=== PATIENT | female | born 1995 | race Caucasian/White ===

== ENCOUNTER 2023-05-29 22:38 | Emergency (ER) | payer MEDICAID, OTHER ==
[~2023-05-29] VITALS: Ht 160 cm; Wt 81.8 kg
[2023-05-29 22:45] VITALS: TEMP 98.2
[2023-05-29] MEDS ORDERED: IBUP-1492 PO (23:57)
[2023-05-30] MEDS ORDERED: IBUPROFEN 600 MG TABLET PO ONE
[2023-05-30 01:00] VITALS: BP 132/69; PULSE 71; RESP 16
== END 2023-05-30 01:02 | disposition home or self-care (01) ==
LOC: EMS 22:38
DX: S20.211A Contusion of right front wall of thorax, initial encounter (principal); J45.909 Unspecified asthma, uncomplicated; F17.210 Nicotine dependence, cigarettes, uncomplicated; F12.90 Cannabis use, unspecified, uncomplicated; X58.XXXA Exposure to other specified factors, initial encounter; Y93.89 Activity, other specified; Y92.89 Other specified places as the place of occurrence of the external cause; Y99.8 Other external cause status
CPT/HCPCS: 71045; 93005; 99283